=== PATIENT | female | born 1985 | race Caucasian/White ===

== ENCOUNTER 2024-06-17 14:45 | Inpatient (IN) | payer OTHER ==
[~2024-06-17] VITALS: Ht 152.4 cm; Wt 1.4 kg
[2024-06-17 14:04] VITALS: BP 98/64
[2024-06-17] MEDS ORDERED: PRENATAL TABLE1 EAC1 PO (14:56)
[2024-06-17] MEDS ORDERED: PROGESTERONE200 MG PO (14:57)
[2024-06-17] MEDS ORDERED: RINGERS SOLUTION,LACTATED 1,000 ML IV SCH (15:00)
[2024-06-17 15:13] LABS: URINE APPEARANCE Clear; URINE BILIRRUBIN Negative (NEGATIVE); URINE BLOOD Negative; URINE COLOR Yellow; URINE GLUCOSE Negative (NEGATIVE); URINE KETONE Negative (NEGATIVE); URINE LEUKOCYTE Negative; URINE NITRATE Negative; URINE PROTEIN Negative (NEGATIVE); URINE UROBILINOGEN 0.2 E.U./dl
[2024-06-17 15:13] LABS: HEMATOCRIT 27.2 % (36.0-45.00); HEMOGLOBIN 9.3 g/dL (12.0-15.00); MEAN CELL VOLUME 85.4 fL (80.00-100.00); MEAN CORPUSCULAR HEMOGLOBIN 29.3 pg (27.00-32.0); MEAN CORPUSCULAR HGB CONC 34.3 g/dl (32.0-36.0); PLATELET COUNT 315 K/uL (150-450); RED BLOOD COUNT 3.18 M/uL (4.00-6.00)
[2024-06-17 15:17] LABS: URINE BACTERIA 70.5 uL (0.0-1933); URINE EPITHELIAL CELLS 9.8 uL (0.0-38.8); URINE RBC 2.9 uL (0.0-20.8); URINE WBC 5.2 uL (0.0-23.2)
[2024-06-17 15:36] LABS: INR 0.95; PARTIAL THROMBOPLASTIN TIME 22.6 SECONDS (22.0-34.0); PROTHROMBIN TIME 10.4 SECONDS (9.0-11.5)
[2024-06-17 16:00] VITALS: BP 103/63
[2024-06-17] MEDS ORDERED: TERBUTALINE SULFATE 1 MG/ML AMPUL SUBCUTANEO SCH (19:00)
[2024-06-17 19:14] VITALS: BP 92/63
[2024-06-17] MEDS ORDERED: hydrOXYzine PAMOATE 25 MG CAPSULE PO ONE (20:45)
[2024-06-17] MEDS ORDERED: PROGESTERONE 200 MG PO SCH (21:00)
[2024-06-17 23:42] VITALS: BP 93/54
[2024-06-18 03:22] VITALS: BP 91/53
[2024-06-18 06:14] VITALS: BP 94/59; O2SAT 100
[2024-06-18] MEDS ORDERED: SOD FERRIC GLUC COMPLX/SUCROSE 62.5 MG in 0.9 % SODIUM CHLORIDE 50 ML IV SCH (09:00)
[2024-06-18] MEDS ORDERED: BETAMETHASONE ACETATE,SOD PHOS 30 MG/5 ML ML IM SCH (09:00)
[2024-06-18 12:00] VITALS: BP 90/55; O2SAT 99
[2024-06-18] MEDS ORDERED: NIFEDIPINE 30 MG TAB.SA.OSM PO STA (12:46)
[2024-06-18 15:29] VITALS: BP 90/45
[2024-06-18 19:45] VITALS: BP 93/55
[2024-06-19 01:00] VITALS: BP 94/56
[2024-06-19 04:49] VITALS: BP 94/58
[2024-06-19 06:14] VITALS: BP 89/50; O2SAT 98
[2024-06-19] MEDS ORDERED: NIFEDIPINE 30 MG TAB.SA.OSM PO SCH (09:00)
[2024-06-19 10:51] VITALS: BP 93/58
[2024-06-19 15:35] VITALS: BP 93/60
[2024-06-20] VITALS (7 sets, daily range): BP systolic 87–96; BP diastolic 52–60; O2SAT 99–100
[2024-06-20] MEDS ORDERED: TERBUTALINE SULFATE 1 MG/ML AMPUL SUBCUTANEO ONE (06:15)
[2024-06-20 12:54] LABS: HEMATOCRIT 25.2 % (36.0-45.00); HEMOGLOBIN 8.4 g/dL (12.0-15.00); MEAN CELL VOLUME 87.2 fL (80.00-100.00); MEAN CORPUSCULAR HGB CONC 33.5 g/dl (32.0-36.0); PLATELET COUNT 304 K/uL (150-450); RED BLOOD COUNT 2.89 M/uL (4.00-6.00); RED CELL DISTRIBUTION WIDTH 13.3 % (11.5-14.5)
[2024-06-20] MEDS ORDERED: DOCUSATE SODIUM 100MG CAP PO SCH (22:46)
[2024-06-21] VITALS (7 sets, daily range): BP systolic 90–99; BP diastolic 54–65; O2SAT 97
[2024-06-21 03:55] LABS: HEMATOCRIT 29.1 % (36.0-45.00); HEMOGLOBIN 10.1 g/dL (12.0-15.00); MEAN CELL VOLUME 86.2 fL (80.00-100.00); MEAN CORPUSCULAR HGB CONC 34.8 g/dl (32.0-36.0); PLATELET COUNT 270 K/uL (150-450); RED BLOOD COUNT 3.38 M/uL (4.00-6.00); RED CELL DISTRIBUTION WIDTH 13.6 % (11.5-14.5)
[2024-06-21] MEDS ORDERED: ACETAMINOPHEN 500 MG GEL..CAP PO PRN (20:45)
[2024-06-22 03:59] VITALS: BP 100/64
[2024-06-22 05:59] VITALS: BP 96/62; O2SAT 96
[2024-06-22 06:49] LABS: HEMATOCRIT 31.6 % (36.0-45.00); HEMOGLOBIN 10.6 g/dL (12.0-15.00); MEAN CELL VOLUME 88.3 fL (80.00-100.00); MEAN CORPUSCULAR HEMOGLOBIN 29.7 pg (27.00-32.0); MEAN CORPUSCULAR HGB CONC 33.6 g/dl (32.0-36.0); PLATELET COUNT 278 K/uL (150-450); RED BLOOD COUNT 3.58 M/uL (4.00-6.00); RED CELL DISTRIBUTION WIDTH 13.7 % (11.5-14.5)
[2024-06-22 12:40] VITALS: BP 90/60
[2024-06-22 15:05] VITALS: BP 94/60
[2024-06-22 16:56] LABS: ABG PH 7.472 (7.35-7.45); ABG PO2 68.8 mmHg (80-100); ABG pCO2 35.1 mmHg (35-45)
[2024-06-22 16:57] LABS: BASE EXCESS 1.9 mmol/l; BICARBONATE 25.1 mmol/l (23-25); SaO2 94.8 %; Tco2 26.2 mmol/l; allen test SATISFACTORY; o2 28 %; puncture site RADIAL LEFT
[2024-06-22] MEDS ORDERED: FUROsemide 20 MG/2 ML VIAL IV STA (18:18)
[2024-06-22] MEDS ORDERED: BUDESONIDE 0.5 MG/2 ML AMPUL.NEB IH SCH (18:18)
[2024-06-22] MEDS ORDERED: LEVALBUTEROL HCL 1.25 MG/3 ML SOLUTION IH SCH (18:18)
[2024-06-22] MEDS ORDERED: PANTOPRAZOLE SODIUM 40 MG/VIAL VIAL IV SCH (18:19)
[2024-06-22] MEDS ORDERED: METHYLPREDNISOLONE SOD SUCC 40 MG VIAL IV SCH ×2 (18:24→20:10)
[2024-06-22] MEDS ORDERED: GUAIFENESIN 100 MG/5 ML BLIST.PACK PO SCH (18:25)
[2024-06-22 20:08] LABS: ABG PO2 83.4 mmHg (80-100); ABG pCO2 32.9 mmHg (35-45); BASE EXCESS 1.8 mmol/l; BICARBONATE 24.5 mmol/l (23-25); SaO2 97.1 %; Tco2 25.5 mmol/l; allen test SATISFACTORY; puncture site RADIAL RIGHT
[2024-06-22 20:09] LABS: o2 50 %
[2024-06-22 20:13] LABS: INR 0.99; PARTIAL THROMBOPLASTIN TIME 24.3 SECONDS (22.0-34.0); PROTHROMBIN TIME 10.8 SECONDS (9.0-11.5)
[2024-06-22] MEDS ORDERED: OSELTAMIVIR PHOSPHATE 75 MG CAPSULE PO SCH (20:15)
[2024-06-22 20:43] LABS: ALBUMIN 2.4 gm/dL (3.4-5.0); BILIRUBIN TOTAL 0.35 mg/dL (0.3-1.2); BILIRUBIN,CONJUGATED 0.17 mg/dL (0.0-0.2); BILIRUBIN,UNCONJUGATED 0.18 mg/dL (0.0-0.6); CREATININE SERUM 0.43 mg/dL (0.55-1.02); GFR 165.22; GLOBULINA 3.2 G/DL (2.4-3.5); POTASSIUM 3.48 mEq/L (3.5-5.1); TOTAL PROTEIN 5.6 gm/dL (6.4-8.2)
[2024-06-22 20:47] LABS: C-REACTIVE PROTEIN 5.16 MG/DL (0.00-0.29); TSH 0.252 uIU/mL (0.358-3.74)
[2024-06-22 20:58] VITALS: BP 99/56; O2SAT 100
[2024-06-22 22:03] LABS: MYCOPLASMA PNEUMONIAE IGM REACTIVE (NO REACTIVE)
[2024-06-22] MEDS ORDERED: AZITHROMYCIN 500 MG VIAL IV SCH (22:16)
[2024-06-22 23:03] LABS: ABG PH 7.501 (7.35-7.45); ABG PO2 372.7 mmHg (80-100); BASE EXCESS 2.6 mmol/l
[2024-06-22 23:04] LABS: BICARBONATE 25.2 mmol/l (23-25); Tco2 26.2 mmol/l; allen test SATISFACTORY; o2 100 %; puncture site RADIAL RIGHT
[2024-06-22 23:26] VITALS: BP 98/61; O2SAT 98
[2024-06-23] VITALS (9 sets, daily range): BP systolic 86–100; BP diastolic 42–62; O2SAT 92–99
[2024-06-23] MEDS ORDERED: ONDANSETRON HCL 8 MG IV ONE (00:45)
[2024-06-23] MEDS ORDERED: ONDANSETRON HCL 2 MG/ML VIAL IV ONE (00:45)
[2024-06-23] MEDS ORDERED: METHYLPREDNISOLONE SOD SUCC 40 MG VIAL IV ONE (08:00)
[2024-06-23] MEDS ORDERED: 0.9 % SODIUM CHLORIDE 500 ML IV ONE (11:45)
[2024-06-23] MEDS ORDERED: 0.9 % SODIUM CHLORIDE 1,000 ML IV SCH ×2 (11:45→16:30)
[2024-06-23 12:54] LABS: ABG PH 7.466 (7.35-7.45); ABG PO2 127.9 mmHg (80-100)
[2024-06-23 12:55] LABS: ABG pCO2 34.5 mmHg (35-45); BASE EXCESS 1.1 mmol/l; BICARBONATE 24.3 mmol/l (23-25); SaO2 99.1 %; Tco2 25.4 mmol/l; allen test SATISFACTORY; o2 50 %; puncture site RADIAL LEFT
[2024-06-23 16:49] LABS: FREE TRIODOTIRONINE 2.17 pg/ml (2.18-3.98); T4 FREE 0.99 NG/ML (0.76-1.46)
[2024-06-23 16:51] LABS: TSH 0.143 uIU/mL (0.358-3.74)
[2024-06-23] MEDS ORDERED: LEVALBUTEROL HCL 0.63 MG/3 ML SOLUTION IH SCH (18:00)
[2024-06-23] MEDS ORDERED: METHYLPREDNISOLONE SOD SUCC 40 MG VIAL IV SCH (21:00)
[2024-06-23] MEDS ORDERED: CITRIC ACID/SODIUM CITRATE 30 ML BLIST.PACK PO ONE (23:30)
[2024-06-23] MEDS ORDERED: FAMOTIDINE/PF 20 MG/2 ML VIAL IV PUSH SCH (23:30)
[2024-06-24 03:28] VITALS: BP 96/57; O2SAT 99
[2024-06-24 08:01] VITALS: BP 95/62; O2SAT 97
[2024-06-24 11:55] VITALS: BP 94/55
[2024-06-24 15:36] VITALS: BP 94/57; O2SAT 100
[2024-06-24] MEDS ORDERED: PANTOPRAZOLE SODIUM 40 MG TABLET.DR PO SCH (16:36)
[2024-06-24] MEDS ORDERED: LACTOBACILLUS ACIDOPHILUS 1 CAP CAP PO SCH (17:00)
[2024-06-24 18:37] LABS: ABG PH 7.463 (7.35-7.45); ABG PO2 79.6 mmHg (80-100); ABG pCO2 34.5 mmHg (35-45); BASE EXCESS 0.9 mmol/l; BICARBONATE 24.1 mmol/l (23-25); SaO2 96.4 %; Tco2 25.2 mmol/l; allen test SATISFACTORY; o2 21 %; puncture site RADIAL LEFT
[2024-06-24 20:20] VITALS: BP 98/60; O2SAT 96
[2024-06-24 23:17] VITALS: BP 97/63; O2SAT 98
[2024-06-25] VITALS (7 sets, daily range): BP systolic 93–111; BP diastolic 58–65; O2SAT 96–100
[2024-06-25] MEDS ORDERED: IPRATROPIUM BROMIDE 0.5 MG/2.5 ML AMPUL.NEB IH SCH (01:00)
[2024-06-25 06:14] LABS: HEMATOCRIT 30.3 % (36.0-45.00); HEMOGLOBIN 10.6 g/dL (12.0-15.00); MEAN CELL VOLUME 87.2 fL (80.00-100.00); MEAN CORPUSCULAR HEMOGLOBIN 30.6 pg (27.00-32.0); MEAN CORPUSCULAR HGB CONC 35.1 g/dl (32.0-36.0); PLATELET COUNT 260 K/uL (150-450); RED BLOOD COUNT 3.47 M/uL (4.00-6.00); RED CELL DISTRIBUTION WIDTH 14.4 % (11.5-14.5)
[2024-06-25 06:58] LABS: ALBUMIN 2.1 gm/dL (3.4-5.0); BILIRUBIN TOTAL 0.2 mg/dL (0.3-1.2); CALCIUM 8.9 mg/dL (8.5-10.1); CREATININE SERUM 0.52 mg/dL (0.55-1.02); GFR 132.69; GLOBULINA 3.2 G/DL (2.4-3.5); POTASSIUM 4.34 mEq/L (3.5-5.1); TOTAL PROTEIN 5.3 gm/dL (6.4-8.2)
[2024-06-25] MEDS ORDERED: MAGNESIUM SULFATE IN WATER 4 GM/100 ML PIGGYBACK IV ONE (14:30)
[2024-06-25] MEDS ORDERED: MAGNESIUM SULFATE IN WATER 500 ML IV SCH (14:30)
[2024-06-26 03:00] VITALS: BP 89/57
[2024-06-26] MEDS ORDERED: PROMETHAZINE HCL 25 MG/ML AMPUL IV ONE (04:30)
[2024-06-26 06:13] VITALS: BP 92/61; O2SAT 99
[2024-06-26 10:52] LABS: ABG PH 7.439 (7.35-7.45); ABG PO2 119.3 mmHg (80-100); ABG pCO2 39.6 mmHg (35-45); BICARBONATE 26.2 mmol/l (23-25); SaO2 98.8 %; Tco2 27.5 mmol/l; allen test SATISFACTORY; o2 32 %; puncture site RADIAL LEFT
[2024-06-26 11:21] VITALS: BP 97/63; O2SAT 98
[2024-06-26 16:16] VITALS: BP 98/63; O2SAT 98
[2024-06-26 20:13] VITALS: BP 104/67; O2SAT 98
[2024-06-27] VITALS (7 sets, daily range): BP systolic 90–100; BP diastolic 57–66; O2SAT 97–98
[2024-06-27 13:47] LABS: ABG PO2 108.4 mmHg (80-100); ABG pCO2 38.5 mmHg (35-45); BASE EXCESS 2.2 mmol/l; BICARBONATE 26.1 mmol/l (23-25); SaO2 98.5 %; Tco2 27.3 mmol/l; o2 32 %
[2024-06-27 13:48] LABS: allen test SATISFACTORY; puncture site RADIAL LEFT
[2024-06-27] MEDS ORDERED: TERBUTALINE SULFATE 1 MG/ML AMPUL SUBCUTANEO ONE ×4 (14:50→18:30)
[2024-06-27 22:57] LABS: ABG PH 7.437 (7.35-7.45); ABG PO2 78.5 mmHg (80-100); ABG pCO2 40.4 mmHg (35-45); BASE EXCESS 2.3 mmol/l; BICARBONATE 26.7 mmol/l (23-25); Tco2 27.9 mmol/l; allen test SATISFACTORY; o2 21 %; puncture site RADIAL RIGHT
[2024-06-28 04:28] VITALS: BP 95/61; O2SAT 98
[2024-06-28 07:16] VITALS: BP 97/64
[2024-06-28 11:58] VITALS: BP 95/63
[2024-06-28 15:33] VITALS: BP 107/73; O2SAT 98
[2024-06-28 18:56] LABS: ABG PH 7.438 (7.35-7.45); ABG pCO2 39.8 mmHg (35-45); BICARBONATE 26.3 mmol/l (23-25); SaO2 96.5 %; Tco2 27.5 mmol/l
[2024-06-28 20:00] VITALS: BP 100/65
[2024-06-28 20:22] LABS: allen test SATISFACTORY; o2 21 %; puncture site RADIAL RIGHT
[2024-06-28 23:27] VITALS: BP 95/61; O2SAT 98
[2024-06-29 03:42] VITALS: BP 93/57
[2024-06-29 06:20] VITALS: BP 97/61; O2SAT 99
[2024-06-29 11:51] VITALS: BP 104/69
[2024-06-29 15:35] VITALS: BP 100/69; BP 111/75
[2024-06-29 19:09] VITALS: BP 93/62
[2024-06-29] MEDS ORDERED: PROMETRIUM200 MG PO (23:45)
[2024-06-29 23:47] VITALS: BP 94/61
[2024-06-30 02:48] VITALS: BP 101/66
[2024-06-30 07:29] VITALS: BP 101/67; O2SAT 98
[2024-06-30] MEDS ORDERED: PNV,CALCIUM 72/IRON/FOLIC ACID 1 TAB TABLET PO SCH (09:00)
[2024-06-30 10:10] VITALS: BP 100/69
[2024-06-30] MEDS ORDERED: BUDESONIDE 0.5 MG/2 ML AMPUL.NEB IH SCH (17:00)
[2024-06-30] MEDS ORDERED: IPRATROPIUM BROMIDE 0.5 MG/2.5 ML AMPUL.NEB IH SCH (17:00)
[2024-07-01 00:03] VITALS: BP 92/55
[2024-07-01 11:56] VITALS: BP 95/68
[2024-07-01 14:40] VITALS: BP 100/67
[2024-07-01 15:43] LABS: HEMATOCRIT 36.9 % (36.0-45.00); HEMOGLOBIN 12.8 g/dL (12.0-15.00); MEAN CELL VOLUME 86.8 fL (80.00-100.00); MEAN CORPUSCULAR HGB CONC 34.6 g/dl (32.0-36.0); PLATELET COUNT 304 K/uL (150-450); RED BLOOD COUNT 4.26 M/uL (4.00-6.00); RED CELL DISTRIBUTION WIDTH 14.4 % (11.5-14.5)
[2024-07-01 16:02] LABS: INR 0.97; PARTIAL THROMBOPLASTIN TIME 22.6 SECONDS (22.0-34.0); PROTHROMBIN TIME 10.6 SECONDS (9.0-11.5)
[2024-07-01 16:07] LABS: ALBUMIN 2.4 gm/dL (3.4-5.0); BILIRUBIN TOTAL 0.48 mg/dL (0.3-1.2); CALCIUM 9.2 mg/dL (8.5-10.1); CREATININE SERUM 0.59 mg/dL (0.55-1.02); GFR 114.69; POTASSIUM 3.75 mEq/L (3.5-5.1); TOTAL PROTEIN 6.4 gm/dL (6.4-8.2)
[2024-07-01] MEDS ORDERED: RINGERS SOLUTION,LACTATED 1,000 ML IV SCH (16:15)
[2024-07-01] MEDS ORDERED: TERBUTALINE SULFATE 1 MG/ML AMPUL SUBCUTANEO ONE (16:30)
[2024-07-01 20:43] VITALS: BP 97/60
[2024-07-01 23:24] VITALS: BP 97/61
[2024-07-02 03:59] VITALS: BP 101/68
[2024-07-02 06:08] VITALS: BP 106/74; O2SAT 97
[2024-07-02 11:18] VITALS: BP 106/70; O2SAT 98
[2024-07-02] MEDS ORDERED: MEPERIDINE HCL/PF 50 MG/ML VIAL IM PRN (12:00)
[2024-07-02] MEDS ORDERED: PROMETHAZINE HCL 50 MG/ML AMPUL IM PRN (12:00)
[2024-07-02] MEDS ORDERED: MORPHINE SULFATE 2 MG/ML CARTRIDGE IV ONE (13:05)
[2024-07-02] MEDS ORDERED: CEFAZOLIN SODIUM 1,000 MG VIAL IV ONE (14:00)
[2024-07-02] MEDS ORDERED: ERYTHROMYCIN BASE OPHT 1GM EACH TUBE OP ONE (14:00)
[2024-07-02] MEDS ORDERED: OXYTOCIN 20 UNITS/1000ML RL PIGGYBAG IV ONE (14:00)
[2024-07-02 14:35] VITALS: BP 106/63
[2024-07-02 15:53] VITALS: BP 103/66
[2024-07-02 17:52] LABS: HEMATOCRIT 35.7 % (36.0-45.00); HEMOGLOBIN 11.8 g/dL (12.0-15.00); MEAN CELL VOLUME 88.8 fL (80.00-100.00); MEAN CORPUSCULAR HEMOGLOBIN 29.3 pg (27.00-32.0); PLATELET COUNT 295 K/uL (150-450); RED BLOOD COUNT 4.02 M/uL (4.00-6.00); RED CELL DISTRIBUTION WIDTH 13.9 % (11.5-14.5)
[2024-07-02 19:00] VITALS: BP 99/64
[2024-07-03 01:03] VITALS: BP 102/68
[2024-07-03 06:09] LABS: HEMATOCRIT 33.1 % (36.0-45.00); HEMOGLOBIN 11.3 g/dL (12.0-15.00); MEAN CELL VOLUME 87.3 fL (80.00-100.00); MEAN CORPUSCULAR HEMOGLOBIN 29.6 pg (27.00-32.0); PLATELET COUNT 294 K/uL (150-450); RED CELL DISTRIBUTION WIDTH 13.6 % (11.5-14.5)
[2024-07-03 07:16] LABS: ALBUMIN 2.2 gm/dL (3.4-5.0); BILIRUBIN TOTAL 0.99 mg/dL (0.3-1.2); CALCIUM 9.8 mg/dL (8.5-10.1); CREATININE SERUM 0.5 mg/dL (0.55-1.02); GFR 138.83; GLOBULINA 3.3 G/DL (2.4-3.5); MAGNESIUM 1.6 mg/dL (1.8-2.4); PHOSPHOROUS 4.4 mg/dL (2.5-4.9); POTASSIUM 4.22 mEq/L (3.5-5.1); TOTAL PROTEIN 5.5 gm/dL (6.4-8.2)
[2024-07-03 08:09] VITALS: BP 98/61
[2024-07-03] MEDS ORDERED: PNV,CALCIUM 72/IRON/FOLIC ACID 1 TAB TABLET PO SCH (09:00)
[2024-07-03] MEDS ORDERED: SIMETHICONE 125 MG CAPSULE PO SCH (09:00)
[2024-07-03] MEDS ORDERED: OxyCODONE HCL/APAP UD (PERCOCET) PO PRN (09:00)
[2024-07-03] MEDS ORDERED: DOCUSATE SODIUM 100MG CAP PO SCH (09:00)
[2024-07-03] MEDS ORDERED: MAGNESIUM CHLORIDE 70 MG TABLET.DR PO ONE (11:30)
[2024-07-03] MEDS ORDERED: MAGNESIUM SULFATE 1,000 MG in 0.9 % SODIUM CHLORIDE 50 ML IV NR (12:00)
[2024-07-03 16:01] VITALS: BP 97/65
[2024-07-03 20:09] VITALS: BP 103/67
[2024-07-04] VITALS: BP 93/60
[2024-07-04 08:23] VITALS: BP 98/61
[2024-07-04] MEDS ORDERED: BISACODYL 10 MG/SUPP.RECT SUPP.RECT RECTAL STA (16:14)
[2024-07-04 17:00] VITALS: BP 102/69
[2024-07-05 00:57] VITALS: BP 99/66
[2024-07-05] MEDS ORDERED: LEVALBUTEROL HCL 0.63 MG/3 ML SOLUTION IH SCH ×3 (01:30→05:00)
[2024-07-05 06:23] LABS: ABG PH 7.474 (7.35-7.45); ABG PO2 75.2 mmHg (80-100); ABG pCO2 37.2 mmHg (35-45); BASE EXCESS 3.2 mmol/l; BICARBONATE 26.7 mmol/l (23-25); Tco2 27.8 mmol/l; allen test SATISFACTORY; puncture site RADIAL RIGHT
[2024-07-05 06:24] LABS: o2 21 %
[2024-07-05 08:00] VITALS: BP 102/72
[2024-07-05 15:47] VITALS: BP 122/74
[2024-07-05 17:45] LABS: HEMATOCRIT 37.8 % (36.0-45.00); HEMOGLOBIN 12.6 g/dL (12.0-15.00); MEAN CELL VOLUME 88.6 fL (80.00-100.00); MEAN CORPUSCULAR HEMOGLOBIN 29.5 pg (27.00-32.0); MEAN CORPUSCULAR HGB CONC 33.3 g/dl (32.0-36.0); PLATELET COUNT 587 K/uL (150-450); RED BLOOD COUNT 4.27 M/uL (4.00-6.00); RED CELL DISTRIBUTION WIDTH 14.2 % (11.5-14.5)
[2024-07-05 18:02] LABS: ALBUMIN 2.8 gm/dL (3.4-5.0); BILIRUBIN TOTAL 0.65 mg/dL (0.3-1.2); CALCIUM 9.8 mg/dL (8.5-10.1); CREATININE SERUM 0.59 mg/dL (0.55-1.02); GFR 114.69; GLOBULINA 4.6 G/DL (2.4-3.5); MAGNESIUM 2.1 mg/dL (1.8-2.4); PHOSPHOROUS 3.7 mg/dL (2.5-4.9); POTASSIUM 4.29 mEq/L (3.5-5.1); TOTAL PROTEIN 7.4 gm/dL (6.4-8.2)
[2024-07-05 19:00] VITALS: BP 102/70
[2024-07-06 00:16] VITALS: BP 110/67
[2024-07-06 08:00] VITALS: BP 93/66
[2024-07-06 15:31] VITALS: BP 106/77
[2024-07-07 00:49] VITALS: BP 105/65
[2024-07-07 08:00] VITALS: BP 104/70
[2024-07-07 15:48] VITALS: BP 98/67
[2024-07-08 00:26] VITALS: BP 100/65
[2024-07-08 06:14] VITALS: BP 104/70
[2024-07-08 08:00] VITALS: BP 95/65
== END 2024-07-08 14:08 | disposition home or self-care (01) | DRG 786 ==
LOC: OBS/DEL 14:45 → OB/GYN 06-18 09:06 → LDR 06-18 09:06 → OB/GYN 06-21 23:13 → LDR 06-22 00:12 → O/R 06-29 16:00 → LDR 06-29 16:01 → OB/GYN 06-30 08:36
PROVIDERS: Internal Medicine; Obstetrics & Gynecology; Specialist; ADMIT Obstetrics & Gynecology; ATTEND Obstetrics & Gynecology
PROC: 4A1HXCZ Monitoring of Products of Conception, Cardiac Rate, External Approach (ICD-10-PCS; 2024-06-18)
PROC: 30233N1 Transfusion of Nonautologous Red Blood Cells into Peripheral Vein, Percutaneous Approach (ICD-10-PCS; 2024-06-20)
PROC: B54DZZZ Ultrasonography of Bilateral Lower Extremity Veins (ICD-10-PCS; 2024-06-22)
PROC: 4A033R1 Measurement of Arterial Saturation, Peripheral, Percutaneous Approach (ICD-10-PCS; 2024-06-22)
PROC: B246ZZZ Ultrasonography of Right and Left Heart (ICD-10-PCS; 2024-06-22)
PROC: BY4FZZZ Ultrasonography of Third Trimester, Single Fetus (ICD-10-PCS; 2024-06-27)
PROC: BU4CZZZ Ultrasonography of Uterus and Ovaries (ICD-10-PCS; 2024-06-27)
PROC: BY47ZZZ Ultrasonography of Fetal Umbilical Cord (ICD-10-PCS; 2024-06-27)
PROC: 10D00Z1 Extraction of Products of Conception, Low, Open Approach (ICD-10-PCS; principal; 2024-07-02 11:00)
PROC: BB24YZZ Computerized Tomography (CT Scan) of Bilateral Lungs using Other Contrast (ICD-10-PCS; 2024-07-05)
PROC: 3E0F7GC Introduction of Other Therapeutic Substance into Respiratory Tract, Via Natural or Artificial Opening (ICD-10-PCS; 2024-07-05)
PROC: B246ZZZ Ultrasonography of Right and Left Heart (ICD-10-PCS; 2024-07-06)
DX: O44.03 Complete placenta previa NOS or without hemorrhage, third trimester (principal); O60.03 Preterm labor without delivery, third trimester; O60.14X0 Preterm labor third trimester with preterm delivery third trimester, not applicable or unspecified; O26.873 Cervical shortening, third trimester; O98.913 Unspecified maternal infectious and parasitic disease complicating pregnancy, third trimester; O26.843 Uterine size-date discrepancy, third trimester; O36.8130 Decreased fetal movements, third trimester, not applicable or unspecified; R09.02 Hypoxemia; O99.893 Other specified diseases and conditions complicating puerperium; O36.5930 Maternal care for other known or suspected poor fetal growth, third trimester, not applicable or unspecified; T80.89XA Other complications following infusion, transfusion and therapeutic injection, initial encounter; Y65.8 Other specified misadventures during surgical and medical care; O99.013 Anemia complicating pregnancy, third trimester; D64.9 Anemia, unspecified; O99.513 Diseases of the respiratory system complicating pregnancy, third trimester; B96.0 Mycoplasma pneumoniae [M. pneumoniae] as the cause of diseases classified elsewhere; J10.1 Influenza due to other identified influenza virus with other respiratory manifestations; Z37.0 Single live birth; Z3A.31 31 weeks gestation of pregnancy; Z3A.29 29 weeks gestation of pregnancy; Z20.822 Contact with and (suspected) exposure to COVID-19
CPT/HCPCS: 71275